=== PATIENT | female | born 1995 | race Caucasian/White ===

== ENCOUNTER 2022-06-11 08:00 | Outpatient (CLI) | payer BC, MEDICAID, OTHER ==
--- NOTE | 2022-06-11 21:31 | XRAY Report ---
PROCEDURE: Foot 3 View LT INDICATIONS: LEFT FOOT PAIN TECHNIQUE: 3 views of the foot were acquired. COMPARISON: None FINDINGS: Bones: No fractures or dislocations. No suspicious bony lesions. Soft tissues: No tibiotalar joint effusion. Achilles tendon appears normal. IMPRESSION: Left foot without acute fracture or dislocation. If there is continued clinical concern for pathology or occult fracture, consider follow-up imaging w ith repeat radiographs in 10-14 days and possible advanced imaging (CT, MRI, bone scan) if symptoms p ersist. Reviewed by: Eh Barroso MD on 06/11/2022 9:29 PM PDT Approved by: Eh Barroso MD on 06/11/2022 9:29 PM PDT Station ID: [id number]
== END 2022-06-11 08:01 | disposition home or self-care (01) ==
LOC: DI.S 08:00
PROVIDERS: ATTEND Physician Assistant Medical
DX: M79.672 Pain in left foot (principal)

== ENCOUNTER 2022-10-15 13:58 | Outpatient (CLI) | payer BC, MEDICAID, OTHER ==
--- NOTE | 2022-10-15 16:38 | XRAY Report ---
PROCEDURE: Foot 3 View LT INDICATIONS: LEFT FOOT SPRAIN TECHNIQUE: 3 views of the foot were acquired. COMPARISON: Left foot radiographs 06/11/2022 FINDINGS: Bones: No acute fractures or dislocations. No suspicious bony lesions. Soft tissues: No suspicious soft tissue calcification. IMPRESSION: No acute osseous abnormality. If symptoms persist or there is continued clinical concern, further hunter luation with MRI or CT may be helpful. Reviewed by: Dom Trejo MD on 10/15/2022 4:36 PM [facility] Approved by: Dom Trejo MD on 10/15/2022 4:36 PM [facility] Station ID: [id number]
== END 2022-10-15 23:59 | disposition home or self-care (01) ==
LOC: DI.S 13:58
PROVIDERS: ATTEND Physician Assistant Medical
DX: S96.212A Strain of intrinsic muscle and tendon at ankle and foot level, left foot, initial encounter (principal)

== ENCOUNTER 2022-11-16 11:32 | Outpatient (CLI) | payer BC, MEDICAID, OTHER ==
--- NOTE | 2022-11-16 20:35 | XRAY Report ---
PROCEDURE: Foot 3 View LT INDICATIONS: LEFT FOOT PAIN TECHNIQUE: 3 views of the foot were acquired. COMPARISON: Left foot radiographs 10/15/2022. FINDINGS: Bones: No fractures or dislocations. No suspicious bony lesions. Soft tissues: No tibiotalar joint effusion. Achilles tendon appears normal. IMPRESSION: No acute osseous abnormality. Reviewed by: Guillermo Browning MD on 11/16/2022 8:34 PM PST Approved by: Guillermo Browning MD on 11/16/2022 8:34 PM PST Station ID: [id number]
== END 2022-11-16 11:33 | disposition home or self-care (01) ==
LOC: DI.WOS 11:32
PROVIDERS: ATTEND Orthopaedic Surgery
DX: M89.9 Disorder of bone, unspecified (principal)